=== PATIENT | male | born 1950 | race Native Hawaiian/Other Pacific Islander ===

== ENCOUNTER 2021-06-10 08:41 | Outpatient (CLI) | payer OTHER ==
[2021-06-10 08:59] LABS: PLATELET COUNT 181 K/uL (142-355)
== END 2021-06-10 19:01 | disposition home or self-care (01) ==
LOC: LABW 08:41
PROVIDERS: ATTEND Nurse Practitioner Family
DX: E83.118 Other hemochromatosis (principal); D45 Polycythemia vera
CPT/HCPCS: 36415; 82728; 85027